=== PATIENT | female | born 1945 | race Caucasian/White ===

== ENCOUNTER → 2020-03-05 | Outpatient (REF) ==
[~2020-03-05] MED LIST: ASPIRIN 81M81 MG/TA2 PO; COUMADIN 5MG5 MG/TAB PO; DECADRON6 MG PO; GALZIN50 MG PO; KEPPRA750 MG PO; TOPROL XL 50MG50 MG PO; VITAMIN D250 MCG PO; VITAMINC1000TA PO; ZESTRIL 20MG TA20 MG PO; ZOCOR 40MG40 MG PO
== END ==
LOC: ZLAB.WCH 09:40
DX: Z01.89 Encounter for other specified special examinations (principal)

== ENCOUNTER 2020-03-06 14:10 | Inpatient (IN) | payer MEDICARE ==
[2020-03-06] VITALS (248 sets, daily range): BP systolic 134–145; BP diastolic 79–81; PULSE 85–86; TEMP 97–98.8; O2SAT 42–100
[~2020-03-06] VITALS: Ht 152.4 cm; Wt 75.0 kg
[2020-03-06] MEDS ORDERED: DECADRON6 MG PO (16:16)
[2020-03-06] MEDS ORDERED: VITAMIN D250 MCG PO (16:20)
[2020-03-06] MEDS ORDERED: VITAMINC1000TA PO (16:21)
[2020-03-06] MEDS ORDERED: GALZIN50 MG PO (16:22)
[2020-03-06] MEDS ORDERED: KEPPRA750 MG PO (16:22)
[2020-03-06] MEDS ORDERED: COUMADIN 5MG5 MG/TAB PO (16:23)
[2020-03-06] MEDS ORDERED: ZOCOR 40MG40 MG PO (16:23)
[2020-03-06] MEDS ORDERED: TOPROL XL 50MG50 MG PO (16:24)
[2020-03-06] MEDS ORDERED: ZESTRIL 20MG TA20 MG PO (16:24)
[2020-03-06] MEDS ORDERED: ASPIRIN 81M81 MG/TA2 PO (16:25)
--- NOTE | 2020-03-06 17:37 | NUR ---
MESSAGE LEFT WITH DR.CURTIS SAAVEDRA OFFICE [phone] REGARDING RECORDS. WILL AWAIT CALL BACK AND ENDORSE TO FOLLOWING SHIFT.
--- NOTE | 2020-03-06 18:26 | NUR ---
Admission assessment completed, was unable to contact at this time and patient is a poor historian/ hx dementia, she is alert/oriented to person, she is able to follow commands but is forgetful, vital signs stable/ afebrile, on 2L. o2 and sats 97%, lungs CTA/ diminished bases, no resp.difficulty noted, heart irregular/ PAC on tele, distal pulses are palpable, meds/allergies reviewed and reconciled based off of paperwork provided from [facility] to us, skin is intact with no issues noted, IV to left arm that was started in [place], notified of he arrival to the unit ICU1, bed alarm is on and will continue to monitor
--- NOTE | 2020-03-06 19:20 | NUR ---
Received report from JASMEET Barfield.
--- NOTE | 2020-03-06 20:17 | NUR ---
Contacted ROSENDA Caceres, regarding inability to obtain peripheral IV access. Received orders to consult surgery for central line placement. Dr. Ramirez notified at 2012.
--- NOTE | 2020-03-06 21:25 | NUR ---
This nurse obtained verbal consent from patient's , Jorge, and assisted Dr. Ramirez in inserting triple lumen LSC central line. Procedure finished at 2100. Chest xray obtained to confirm placement and read by Dr. Ramirez. Received confirmation to use the line.
--- NOTE | 2020-03-06 22:00 | NUR ---
Patient resting quietly in bed. Denies any pain or discomfort. Vitals within normal limits. Patient assisted to bedside commode with one-person assist. Reinforced teachings regarding use of call light and bedside phone. No further needs noted at this time.
[2020-03-06 22:17] LABS: INR 1.7 (0.8-3.0); PROTHROMBIN TIME 18.7 SECONDS (9.7-12.8)
[2020-03-07] VITALS (665 sets, daily range): BP systolic 96–149; BP diastolic 65–99; PULSE 60–88; TEMP 98.2–101.7; O2SAT 36–100
[2020-03-07 05:14] LABS: BASO % 0.3 % (0.0-2.0); GRAN % 59.1 % (42.2-75.2); HEMOGLOBIN 12.7 g/dl (12.5-16.0); MEAN CELL VOLUME 89 fl (80.0-100.0); MEAN CORPUSCULAR HEMOGLOBIN 30 pg (27.0-31.0); MEAN CORPUSCULAR HGB CONC 33 g/dl (33.0-37.0); MEAN PLATELET VOLUME 11.6 fl (7.4-10.4); MONO # 0.3 (0.1-0.6); MONO % 9.6 % (1.7-9.3); PLATELET COUNT 84 K/mm3 (130-400); RED BLOOD COUNT 4.28 M/mm3 (4.10-5.30); REDCELL DISTRIBUTION WIDTH-CV 14.1 % (11.5-14.5)
[2020-03-07 05:19] LABS: INR 1.7 (0.8-3.0)
[2020-03-07 05:22] LABS: CALCIUM 7.9 mg/dL (8.4-10.2); CREATININE, serum 1.82 (0.52-1.25); MAGNESIUM 1.6 mg/dL (1.6-2.3); POTASSIUM 3.7 mmol/L (3.4-5.0)
[2020-03-07 05:36] LABS: TROPONIN-I 0.065 ng/mL (0.000-0.035)
--- NOTE | 2020-03-07 07:10 | NUR ---
Report given to JASMEET Varela.
--- NOTE | 2020-03-07 16:00 | NUR ---
UPDATES GIVEN TO FAMILY MULTIPLE TIMES TODAY. LUCY IS NOW ON ROOM AIR AND MEDICAL STATUS.
--- NOTE | 2020-03-07 19:00 | NUR ---
Received report from JASMEET Varela. All questions answered and all medications verified. Patient resting in bed on RA. In contact/droplet precaution. VSS. Will resume care at this time.
--- NOTE | 2020-03-07 19:30 | NUR ---
REPORT GIVEN TO CONSTANZA RN
[2020-03-08] VITALS (436 sets, daily range): BP systolic 107–125; BP diastolic 54–76; PULSE 60–68; TEMP 98.2–99; O2SAT 39–99
--- NOTE | 2020-03-08 00:16 | NUR ---
Called [facility] and spoke with Dr. Perez, the land commissioner provider. Stated patients magnesium level from 03/06 at 0400 was 1.6 and had not been replaced. Received orders for 2g IV mag to be replaced.
[2020-03-08 06:11] LABS: GRAN # 3.3 (1.4-6.5); GRAN % 72.5 % (42.2-75.2); HEMATOCRIT 38.1 % (37.0-47.0); HEMOGLOBIN 12.7 g/dl (12.5-16.0); LYMPH # 0.9 (1.2-3.4); MEAN CELL VOLUME 89 fl (80.0-100.0); MEAN CORPUSCULAR HEMOGLOBIN 30 pg (27.0-31.0); MEAN CORPUSCULAR HGB CONC 33 g/dl (33.0-37.0); MEAN PLATELET VOLUME 11.4 fl (7.4-10.4); MONO # 0.4 (0.1-0.6); MONO % 8.3 % (1.7-9.3); PLATELET COUNT 91 K/mm3 (130-400); RED BLOOD COUNT 4.29 M/mm3 (4.10-5.30); REDCELL DISTRIBUTION WIDTH-CV 14.2 % (11.5-14.5)
[2020-03-08 06:19] LABS: CALCIUM 7.8 mg/dL (8.4-10.2); CREATININE, serum 1.62 (0.52-1.25); MAGNESIUM 2.3 mg/dL (1.6-2.3); POTASSIUM 4.1 mmol/L (3.4-5.0)
[2020-03-08 06:32] LABS: INR 2.3 (0.8-3.0); PROTHROMBIN TIME 25.4 SECONDS (9.7-12.8)
--- NOTE | 2020-03-08 07:00 | NUR ---
REPORT RECEIVED FROM CONSTANZA ALAMO. PT SLEEPING ON 3L NC WITH NS RUNNING AT 75ML/HR. WILL CONTINUE TO MONITOR.
--- NOTE | 2020-03-08 08:11 | NUR ---
Warfarin Follow-up Pharmacy Note Current regimen: WARFARIN 5MG QHS LABS: INR 2.3, UP FROM 1.7 Changes in therapy: DECREASE TO WARFARIN 4 MG QHS. MAY NEED FURTHER REDUCTION DUE TO ADDITION OF ABX. WILL CONTINUE TO MONITOR.
--- NOTE | 2020-03-08 13:20 | NUR ---
SW contacted patient's Marco Antonio (P# [phone]) to conduct intake evaluation due to patient's dementia. Patient lives at home with her in [place]. Marco Antonio "Jorge" is her DPOA. Jorge agreed to bring in a copy of her DPOA paperwork to be filed with her chart. reports that he assists her with any ADLs. At this time, he does not feel that he will need assistance from home health agencies. Patient uses no medical equipment. could not remember the name of her PCP, but he stated that she sees a provider in [place]. Patient uses [facility] in [place] for medications. Plan is to return home with her upon discharge. denies having any questions or concerns at this time. Social work will continue to follow.
--- NOTE | 2020-03-08 18:34 | NUR ---
1725-REPORT CALLED TO JI ALAMO. ALL QUESTION ANSWERED. 1800-PT TRANSPORTED BY WHEELCHAIR TO ROOM 302. JI ALAMO MET BEDSIDE. PT TRANSFERED TO BED. [address] ALL QUESTIONS ANSWERED.
--- NOTE | 2020-03-08 18:41 | NUR ---
Patient alert and oriented to self. Clear lung sound. triple lumen on LIJ. regular heart rhythm. Multiple bruise on upper extremities. requires one assist to ambulate from bed to restroom. generalized weakness refused dinner. Patient on 3L O2 at 94%. Patient resting in bed at this time.
[2020-03-09 03:32] VITALS: BP 116/53; PULSE 68; TEMP 97.6
[2020-03-09 06:25] LABS: BASO % 0.1 % (0.0-2.0); GRAN # 6.3 (1.4-6.5); GRAN % 75.3 % (42.2-75.2); HEMATOCRIT 39.1 % (37.0-47.0); HEMOGLOBIN 12.9 g/dl (12.5-16.0); LYMPH # 1.4 (1.2-3.4); LYMPH % 16.4 % (20.0-51.0); MEAN CELL VOLUME 89 fl (80.0-100.0); MEAN CORPUSCULAR HEMOGLOBIN 29 pg (27.0-31.0); MEAN CORPUSCULAR HGB CONC 33 g/dl (33.0-37.0); MEAN PLATELET VOLUME 11.8 fl (7.4-10.4); MONO # 0.7 (0.1-0.6); PLATELET COUNT 133 K/mm3 (130-400); RED BLOOD COUNT 4.39 M/mm3 (4.10-5.30); REDCELL DISTRIBUTION WIDTH-CV 14.4 % (11.5-14.5)
[2020-03-09 06:37] LABS: INR 2.9 (0.8-3.0); PROTHROMBIN TIME 32.3 SECONDS (9.7-12.8)
[2020-03-09 06:38] LABS: CALCIUM 7.8 mg/dL (8.4-10.2); CREATININE, serum 1.53 (0.52-1.25); POTASSIUM 4.2 mmol/L (3.4-5.0)
[2020-03-09 07:29] VITALS: BP 117/62; PULSE 70; TEMP 98.2
--- NOTE | 2020-03-09 09:50 | NUR ---
PATIENT ASSESSMENT COMPLETED. O2 ON PULSE OX IS IN THE MID 70'S. SHE IS DROWSY BUT ARROUSES EASILY AND FOLLOWS DIRECTIONS WELL. SHE IS ASSISTED TO THE RESTROOM PULSE OX REPORTS LEVEL AT 68%. I HAVE NOTIFIED DR. COFFMAN, CHARGE NURSE AND RESPIRATORY. NEW ORDERS RECEIVED.
--- NOTE | 2020-03-09 10:28 | NUR ---
Patient is currently on 31 03. Plan is still to return home with her . Patient may need home oxygen. Social work will continue to follow.
[2020-03-09 10:29] LABS: ARTERIAL BLD GAS O2 SATURATION 93.1 % (92-100); ARTERIAL BLD GAS TCO2 CT 17.3; ARTERIAL BLOOD GAS BASE EXCESS -6.4 (-2-2); ARTERIAL BLOOD GAS HCO3 16.5 meq/L (22-26); ARTERIAL BLOOD GAS PCO2 25.6 mmHg (35-45); ARTERIAL BLOOD GAS PO2 66.8 mmHg (80-100); ARTERIAL BLOOD GAS pH 7.43 (7.35-7.45)
[2020-03-09 12:26] VITALS: BP 119/58; PULSE 59; TEMP 97.9
--- NOTE | 2020-03-09 12:58 | NUR ---
PATIENT WAS ASSISTED TO THE BEDSIDE COMMODE SHE TOLERATES WELL. SHE IS NOT ABLE TO VERBALIZE THAT SHE NEEDS TO GO TO THE BATHROOM SHE JUST POINTS AT THE BATHROOM DOOR. UPON GETTING HER UP TO THE RESTROOM I HAVE FOUND THAT SHE WAS INCONTINENT. BEDBATH IS PROVIDED AND LINENS/GOWN CHANGED.
[2020-03-09 15:40] VITALS: BP 121/93; PULSE 59; TEMP 98
[2020-03-09 19:40] VITALS: BP 137/62; PULSE 58; TEMP 98.6
[2020-03-10 00:13] VITALS: BP 135/67; PULSE 60; TEMP 98.3
[2020-03-10 04:32] VITALS: BP 148/78; PULSE 65; TEMP 98.1
[2020-03-10 06:21] LABS: BASO % 0.1 % (0.0-2.0); GRAN # 6.4 (1.4-6.5); GRAN % 80.5 % (42.2-75.2); HEMOGLOBIN 11.8 g/dl (12.5-16.0); LYMPH # 0.9 (1.2-3.4); LYMPH % 11.4 % (20.0-51.0); MEAN CELL VOLUME 89 fl (80.0-100.0); MEAN CORPUSCULAR HEMOGLOBIN 29 pg (27.0-31.0); MEAN CORPUSCULAR HGB CONC 33 g/dl (33.0-37.0); MEAN PLATELET VOLUME 11.5 fl (7.4-10.4); MONO # 0.6 (0.1-0.6); MONO % 7.7 % (1.7-9.3); PLATELET COUNT 130 K/mm3 (130-400); RED BLOOD COUNT 4.05 M/mm3 (4.10-5.30); REDCELL DISTRIBUTION WIDTH-CV 14.3 % (11.5-14.5)
[2020-03-10 06:24] LABS: INR 4.7 (0.8-3.0)
[2020-03-10 06:30] LABS: CREATININE, serum 1.46 (0.52-1.25); POTASSIUM 4.1 mmol/L (3.4-5.0)
[2020-03-10 06:41] LABS: HEMATOCRIT 36.2 % (37.0-47.0)
--- NOTE | 2020-03-10 08:55 | NUR ---
Pt awake and alert upon entry, assisted Pt to bedside commode, replaced Pt's brief, cleaned Pt returned to bed. No C/O pain at this time. Shift assessment complete, left Pt call light in reach, bed in lowest position.
[2020-03-10 09:20] VITALS: BP 124/68; PULSE 66; TEMP 97.6
[2020-03-10 12:03] VITALS: BP 124/56; PULSE 66; TEMP 97.3
--- NOTE | 2020-03-10 13:10 | NUR ---
The patient remains on 60 liters of oxygen. JESUS asked the hospitalist for PT/OT to be ordered.
--- NOTE | 2020-03-10 14:02 | NUR ---
INCREASED TO 70% SPO2 92%
[2020-03-10 16:00] VITALS: BP 127/55; PULSE 59; TEMP 97.9
--- NOTE | 2020-03-10 18:40 | NUR ---
Pt resting in the room today, no C/O pain throughout the day, Pt still on airvo at 60 LPM, Pt has been up to the bedside commode several times, has had loose stools. VS have remained stable.
[2020-03-10 19:29] VITALS: BP 130/56; PULSE 64; TEMP 98.1
--- NOTE | 2020-03-10 23:52 | NUR ---
Patient alert and oriented this evening. denied any pain. On 2L of O2 NC at 97%. patient ambulate independently in the room. call light within reach. no concern or question at this time. patient sleeping at this time.
[2020-03-11] VITALS (12 sets, daily range): BP systolic 112–148; BP diastolic 37–91; PULSE 56–71; TEMP 97.1–99
--- NOTE | 2020-03-11 00:06 | NUR ---
Patient alert, oriented to self. have difficulty finding words when talking. swallows medication without any difficulty. denies any pain. require one person assistance to use bedside commode. call light within reach. sleeping in bed at the moment. On airvo 60L at 93-95%.
--- NOTE | 2020-03-11 03:24 | NUR ---
Patient asleep comfortably in bed. RN replaced sterile water connected to airvo.
[2020-03-11 06:54] LABS: BASO % 0.1 % (0.0-2.0); GRAN # 7.7 (1.4-6.5); GRAN % 82.1 % (42.2-75.2); HEMOGLOBIN 12.1 g/dl (12.5-16.0); LYMPH # 0.8 (1.2-3.4); LYMPH % 8.7 % (20.0-51.0); MEAN CELL VOLUME 89 fl (80.0-100.0); MEAN CORPUSCULAR HEMOGLOBIN 30 pg (27.0-31.0); MEAN CORPUSCULAR HGB CONC 34 g/dl (33.0-37.0); MEAN PLATELET VOLUME 11.5 fl (7.4-10.4); MONO # 0.8 (0.1-0.6); MONO % 8.6 % (1.7-9.3); PLATELET COUNT 171 K/mm3 (130-400); RED BLOOD COUNT 4.06 M/mm3 (4.10-5.30); REDCELL DISTRIBUTION WIDTH-CV 14.5 % (11.5-14.5)
[2020-03-11 07:06] LABS: CALCIUM 8.2 mg/dL (8.4-10.2); CREATININE, serum 1.49 (0.52-1.25)
[2020-03-11 07:08] LABS: HEMATOCRIT 36.1 % (37.0-47.0)
--- NOTE | 2020-03-11 08:40 | NUR ---
Pt sleeping upon entry, easily awakened, no C/O pain at this time. Shift assessment complete, left Pt call light in reach, bed in lowest position.
--- NOTE | 2020-03-11 13:54 | NUR ---
The patient remains on 60 lites of oxygen. JESUS staffed with the hospitalist and asked if the patient would be a candidate for [facility]. The hospitalist would like a referral sent to [facility]. JESUS contacted and discussed [facility] with the patient's , Jorge. Jorge is agreeable to [facility]. JESUS contacted and faxed a referral to Martinez at [facility]. Awaiting screen. Martinez reports that the patient's oxygen needs will need to come down or she will need to be able to tolerate a bipap. JESUS notified RT. RT reports that the patient is up to 75 liters right now and is not able to be weaned down at this time.
--- NOTE | 2020-03-11 17:31 | NUR ---
Pt receives 1 unit convalescent plasma, no reactions noted from the transfusion, VS remained stable during the procedure.
--- NOTE | 2020-03-11 20:40 | NUR ---
Patient assessed at this time. Alert and oriented to self, with confusion on time, place, and situation. Denies having pain and discomfort. Triple lune central line to left subclavian. Site without reness, warmth, swelling, and pain. Each lumen flushed and has blood return. Denies having SOB and dyspnea. On Airvo at 60 L at 75%. LS CTA in upper lobes, diminished in lower. Respirations even and unlabored. HRR. Capillary refill less than 3 seconds. Non-tenting skin turgor. BSAx4. Abdomen soft and non-tender. 1+ edema BLE. Voices no questions, needs, or concerns at this time. High fall risk precautions in place.
[2020-03-12 03:01] VITALS: BP 144/68; PULSE 68; TEMP 98.6
--- NOTE | 2020-03-12 05:55 | NUR ---
Patient continues on Airvo at 60 L 75%. Denies having SOB and dyspnea. Denies pain and discomfort. High fall risk precautions in place. Continues on Airborn/Contact isolation per protocol. Resting in bed with call light within reach. Bed alarm on.
[2020-03-12 08:00] VITALS: BP 126/58; PULSE 66; TEMP 98.2
--- NOTE | 2020-03-12 09:25 | NUR ---
Pt awake upon entry, in bed, responds appropriately. No C/O pain at this time. Shift assessments complete, left Pt call light in reach, bed in lowest position.
[2020-03-12 12:16] LABS: INR 3.6 (0.8-3.0); PROTHROMBIN TIME 40.3 SECONDS (9.7-12.8)
[2020-03-12 12:27] VITALS: BP 125/59; PULSE 65; TEMP 97.3
[2020-03-12 16:30] VITALS: BP 124/57; PULSE 63; TEMP 97.4
[2020-03-12 19:50] VITALS: BP 114/77; PULSE 62; TEMP 97.4
--- NOTE | 2020-03-12 21:11 | NUR ---
PATIENT IS CALM,MEDS GIVEN,ASSESSMENT DONE,DENIES PAIN NO NEEDS AT THIS TIME.SETTLED TO SLEEP
[2020-03-12 23:23] VITALS: BP 144/89; PULSE 64; TEMP 98
[2020-03-12 23:57] LABS: ARTERIAL BLD GAS O2 SATURATION 90.1 % (92-100); ARTERIAL BLD GAS TCO2 CT 22.7; ARTERIAL BLOOD GAS BASE EXCESS -1.4 (-2-2); ARTERIAL BLOOD GAS HCO3 21.7 meq/L (22-26); ARTERIAL BLOOD GAS PCO2 31.6 mmHg (35-45); ARTERIAL BLOOD GAS PO2 58.9 mmHg (80-100); ARTERIAL BLOOD GAS pH 7.46 (7.35-7.45)
--- NOTE | 2020-03-13 00:02 | NUR ---
At approximately 2330, PCT notified this nurse that SPO2 was 82%. Called RT and notified SHER Diaz. New order for ABG, BIPAP, and CXR. Called radilology for STAT CXR. Updated RT. ABG obtained by RT, and started on BIPAP. Currently SPO2 is 94% on BIPAP. Awaiting CXR at this time.
[2020-03-13 01:10] LABS: ARTERIAL BLD GAS O2 SATURATION 98.3 % (92-100); ARTERIAL BLD GAS TCO2 CT 21.4; ARTERIAL BLOOD GAS BASE EXCESS -2.7 (-2-2); ARTERIAL BLOOD GAS HCO3 20.4 meq/L (22-26); ARTERIAL BLOOD GAS PCO2 30.5 mmHg (35-45); ARTERIAL BLOOD GAS pH 7.44 (7.35-7.45)
[2020-03-13 01:11] LABS: ARTERIAL BLOOD GAS PO2 139.4 mmHg (80-100)
--- NOTE | 2020-03-13 01:32 | NUR ---
Called RT regarding follow up ABG results. RT reported she changed patient to CPAP status, 70%. SPO2 93%.
[2020-03-13 03:52] VITALS: BP 127/56; PULSE 60; TEMP 98.5
--- NOTE | 2020-03-13 05:25 | NUR ---
PATIENT IS HAD A CALM NIGHT ON O2 THERAPY SATTING ABOVE 90.DENIES PAIN,NO NEEDS AT THIS TIME.
[2020-03-13 05:26] LABS: ARTERIAL BLD GAS O2 SATURATION 93.3 % (92-100); ARTERIAL BLD GAS TCO2 CT 25.2; ARTERIAL BLOOD GAS BASE EXCESS 0.3 (-2-2); ARTERIAL BLOOD GAS HCO3 24.1 meq/L (22-26); ARTERIAL BLOOD GAS PO2 68.6 mmHg (80-100); ARTERIAL BLOOD GAS pH 7.44 (7.35-7.45)
[2020-03-13 07:01] LABS: BASO % 0.1 % (0.0-2.0); GRAN # 7.4 (1.4-6.5); GRAN % 86.1 % (42.2-75.2); HEMOGLOBIN 10.9 g/dl (12.5-16.0); LYMPH # 0.5 (1.2-3.4); LYMPH % 5.9 % (20.0-51.0); MEAN CELL VOLUME 88 fl (80.0-100.0); MEAN CORPUSCULAR HEMOGLOBIN 30 pg (27.0-31.0); MEAN CORPUSCULAR HGB CONC 34 g/dl (33.0-37.0); MEAN PLATELET VOLUME 10.5 fl (7.4-10.4); MONO # 0.6 (0.1-0.6); MONO % 7.2 % (1.7-9.3); PLATELET COUNT 160 K/mm3 (130-400); RED BLOOD COUNT 3.68 M/mm3 (4.10-5.30); REDCELL DISTRIBUTION WIDTH-CV 14.3 % (11.5-14.5)
[2020-03-13 07:02] LABS: HEMATOCRIT 32.5 % (37.0-47.0)
[2020-03-13 07:16] LABS: CALCIUM 8.5 mg/dL (8.4-10.2)
[2020-03-13 07:18] LABS: INR 3.9 (0.8-3.0); PROTHROMBIN TIME 44.4 SECONDS (9.7-12.8)
[2020-03-13 07:23] LABS: CREATININE, serum 1.33 (0.52-1.25)
[2020-03-13 08:49] VITALS: BP 115/54; PULSE 55; TEMP 97.8
--- NOTE | 2020-03-13 11:00 | NUR ---
Assessment completed, alert/partially oriented, vital signs stable, denies pain, on airvo 60L/80%, wore c-pap 70%fio2 through the night, no resp.difficulty or labored breathing noted, some fine crackles noted in her lower lobes but overall good air exchange bilaterally, heart RRR/distal pulses are palpable, spoke with family on the phone and discussed plan of care, selecet LTAC referral made, bed alarm set and call light in reach, will cotninue to monitor
[2020-03-13 12:21] VITALS: BP 113/56; PULSE 66; TEMP 97.5
--- NOTE | 2020-03-13 12:58 | NUR ---
CPAP BACK ON NOW, CPAP OF 10, TIDAL VOL 423, SPO2 92%, SPONTANEOUS RATE OF 31.
--- NOTE | 2020-03-13 13:23 | NUR ---
Geraldine, at [facility], reports that the earliest they would be able to take the patient with the COVID algorithm is tomorrow, 03/14, if they have a bed. JESUS staffed with RT. The patient is using a bipap machine, but is only on CPAP mode at 8 and would be able to tranport. JESUS contacted and updated the patient's , Jorge. Jorge is agreeable for the patient to go to [facility], once they have a bed. JESUS faxed updates to Geraldine at [facility].
[2020-03-13 16:46] VITALS: BP 139/80; PULSE 70; TEMP 99
[2020-03-13 19:48] VITALS: BP 123/57; PULSE 81; TEMP 97.9
--- NOTE | 2020-03-13 21:31 | NUR ---
PATIENT IS CALM IN THE ROOM ON AIRVO SATTING AT LOW 80S RT INFORMED PT PUT ON CPAP NOW SATTING ABOVE 90S.ASSESSMENT DONE, DUE MEDS GIVEN,DENIES PAIN.NO NEEDS AT THIS TIME
[2020-03-14] VITALS (8 sets, daily range): BP systolic 108–134; BP diastolic 47–80; PULSE 67–89; TEMP 97.6–99.1
--- NOTE | 2020-03-14 05:33 | NUR ---
PATIENT HAD A RESTFUL NIGHT,ON CPAP WAS SATTING AT LOW 80S RT INFORMED O2 INCREASED TO 80L NOW SATTING AT 92%.DENIES PAIN.NO NEEDS AT THIS TIME.
--- NOTE | 2020-03-14 14:35 | NUR ---
Allyson, at [facility], reports that they may have a bed available for the patient on Tuesday or Tuesday. Allyson requested updates. JESUS faxed updates to Allyson. JESUS contacted and updated the patient's , Jorge. He is in agreement to the plan. JESUS staffed with RT. The patient is on a bipap now, 29/09. JESUS contacted Mari at [facility]. Mari reports that they would be able to provide transportation on Tuesday after 1200. JESUS attempted to contact [facility] in [place]. JESUS left them a voicemail.
--- NOTE | 2020-03-14 15:00 | NUR ---
[facility] returned SW's phone call. [facility] reports that they are able to accomodate bipap during transport, but would not be able to provide transportation tomorrow.
--- NOTE | 2020-03-14 22:13 | NUR ---
PATIENT IS CALM IN THE ROOM,ASSESSMENT DONE,DUE MEDS GIVEN,DENIES PAIN NO NEEDS AT THIS TIME.
[2020-03-15 04:48] VITALS: BP 133/74; PULSE 65; TEMP 98.4
--- NOTE | 2020-03-15 05:51 | NUR ---
PATIENT HAD A RESTFUL NIGHT,ON OXYGEN THERAPY VIA BIPAP,DENIES PAIN.NO NEEDS AT THIS TIME.
--- NOTE | 2020-03-15 08:00 | NUR ---
Pt assessment complete. Pt laying in bed, she is alert not oriented. Asking about her kids. Pt switched from bipap to Airvo 60L 90% FiO2, she does report having SOB. No pain at this time. Pt is incontinent of urine, pericare provided. Pt took pills without complications. No needs at this time. Bed alarm and call light in place.
[2020-03-15 08:01] VITALS: BP 118/70; PULSE 61; TEMP 98.7
[2020-03-15 11:36] VITALS: BP 133/72; PULSE 70; TEMP 97.3
--- NOTE | 2020-03-15 15:10 | NUR ---
SW update, [facility] reports [facility] bed available Tuesday or Tuesday.
[2020-03-15 15:54] VITALS: BP 130/74; PULSE 66; TEMP 97.5
--- NOTE | 2020-03-15 15:55 | NUR ---
JESUS update, Bed available at [facility]. Accepting PA Dr. Lopez,Room 123. JESUS will fax dc orders to , Nurse to Nurse Report to . Attempted called to spouse Jorge at , will attemptagain prior to transfer. Patient is able to transfer wth [facility] on Bipap. Notified and Reji Sup. and patients nurse.
--- NOTE | 2020-03-15 18:30 | NUR ---
Report given to EMS and [facility], pt left facility wearing bipap for [facility] at this time.
== END 2020-03-15 18:30 | DRG 177 ==
LOC: ICU 14:10 → PEDS 03-08 18:06
PROVIDERS: Hospitalist; Student in an Organized Health Care Education/Training Program; ADMIT Internal Medicine
PROC: 02HV33Z Insertion of Infusion Device into Superior Vena Cava, Percutaneous Approach (ICD-10-PCS; principal; 2020-03-06)
PROC: XW033E5 Introduction of Remdesivir Anti-infective into Peripheral Vein, Percutaneous Approach, New Technology Group 5 (ICD-10-PCS; 2020-03-08)
DX: U07.1 COVID-19 (principal); J96.01 Acute respiratory failure with hypoxia; J12.82 Pneumonia due to coronavirus disease 2019; N17.9 Acute kidney failure, unspecified; I12.9 Hypertensive chronic kidney disease with stage 1 through stage 4 chronic kidney disease, or unspecified chronic kidney disease; I48.0 Paroxysmal atrial fibrillation; N18.30 Chronic kidney disease, stage 3 unspecified; D69.6 Thrombocytopenia, unspecified; R53.81 Other malaise; E66.9 Obesity, unspecified; I49.9 Cardiac arrhythmia, unspecified; Z66 Do not resuscitate; Z79.82 Long term (current) use of aspirin; Z79.01 Long term (current) use of anticoagulants; Z68.34 Body mass index [BMI] 34.0-34.9, adult
CPT/HCPCS: 99223-AI; 99232-AI; 99233-AI; 99239; J0696; J3475; J7030; J7050; J8540